=== PATIENT | female | born 1995 | race Caucasian/White ===

== ENCOUNTER 2021-07-18 20:27 | Emergency (ER) | payer MEDICAID ==
[~2021-07-18] VITALS: Ht 160 cm; Wt 66.3 kg
[2021-07-18 20:33] VITALS: BP 131/98
[2021-07-18] MEDS ORDERED: LIDOCAINE-MPF 1%, 5ML INFIL ONE (22:00)
== END 2021-07-18 21:51 | disposition home or self-care (01) ==
LOC: ED 20:37
DX: L02.11 Cutaneous abscess of neck (principal); L03.221 Cellulitis of neck; F17.210 Nicotine dependence, cigarettes, uncomplicated
CPT/HCPCS: 10060; 99283